=== PATIENT | male | born 1980 | race Caucasian/White ===

== ENCOUNTER 2018-05-03 16:01 | Emergency (ER) | payer OTHER ==
[~2018-05-03] VITALS: Ht 167.6 cm; Wt 131.5 kg
[2018-05-03 16:36] LABS: Source, Urine Clean Catch
[2018-05-03 16:44] LABS: BASOPHILS ABSOLUTE AUTO 0.04 K/mm3 (0.00-0.23); BASOPHILS PERCENT AUTO 1 % (0-2); EOSINOPHILS ABSOLUTE AUTO 0.48 K/mm3 (0.00-0.68); EOSINOPHILS PERCENT AUTO 6 % (0-6); Hemoglobin 13.9 g/dL (13.5-17.5); IMMATURE GRAN ABSOLUTE AUTO 0.01 K/mm3 (0.00-0.10); IMMATURE GRAN PERCENT AUTO 0 % (0-1); LYMPHOCYTES ABSOLUTE AUTO 2.21 K/mm3 (0.84-5.20); LYMPHOCYTES PERCENT AUTO 29 % (21-46); MONOCYTES ABSOLUTE AUTO 0.62 K/mm3 (0.16-1.47); MONOCYTES PERCENT AUTO 8 % (4-13); Mean Corpuscular HGB 29.4 pg (26.0-34.0); Mean Corpuscular HGB Conc 32.3 g/dL (31.5-36.5); Mean Corpuscular Volume 91 fL (80-100); Mean Platelet Volume 9.3 fL (9.1-12.4); NEUTROPHILS ABSOLUTE AUTO 4.19 K/mm3 (1.96-9.15); NEUTROPHILS PERCENT AUTO 56 % (41-73); Platelet Count 301 K/mm3 (150-400); RDW Coefficient Variation 14.1 % (11.7-14.2); RDW Standard Deviation 47.7 fL (35.1-46.3); Red Blood Cell Count 4.73 M/mm3 (4.30-5.90); White Blood Cell Count 7.55 K/mm3 (4.00-11.30)
[2018-05-03 16:46] LABS: Appearance, Urine Clear (Clear); Bilirubin, Urine Neg (Neg); Blood, Urine Neg (Neg); Color, Urine Yellow (P-Yellow); Glucose Qualitative, Urine Neg (Neg); Ketones, Urine Neg (Neg); Leukocyte Esterase, Urine Neg (Neg); Nitrite, Urine Neg (Neg); Protein, Urine 1+ (Neg); Urobilinogen, Urine NORM (Normal)
[2018-05-03 17:13] LABS: Alanine Aminotransfer (ALT/SGP 73 U/L (12-78); Albumin, Blood 3.2 g/dL (3.4-5.0); Albumin/Globulin Ratio 0.7 (0.8-1.8); Alk Phos 110 U/L (50-136); Anion Gap 5 mmol/L (6-16); Aspartate Aminotrans (AST/SGOT 37 U/L (12-37); Bilirubin, Total 0.5 mg/dL (0.1-1.0); Blood Urea Nitrogen 40 mg/dL (8-24); Bun/Creatinine Ratio 42.5 (12.0-20.0); CO2, Blood 24 mmol/L (21-32); Calcium, Blood 8.1 mg/dL (8.5-10.1); Chloride, Blood 111 mmol/L (98-108); Creatinine, Blood 0.94 mg/dL (0.60-1.20); Globulin, Blood 4.6 g/dL (2.2-4.0); Glomerular Filtration Rate >60 (60-); Glucose, Blood 82 mg/dL (70-99); Potassium, Blood 4.1 mmol/L (3.5-5.5); Sodium, Blood 140 mmol/L (136-145); Total Protein, Blood 7.8 g/dL (6.4-8.2)
[2018-05-03] MEDS ORDERED: Norco 5-325 Ta1 EACH PO (17:48)
== END 2018-05-03 18:12 | disposition home or self-care (01) ==
LOC: ER 16:01
PROVIDERS: Physician Assistant
DX: K40.90 Unilateral inguinal hernia, without obstruction or gangrene, not specified as recurrent (principal); I10 Essential (primary) hypertension; F17.200 Nicotine dependence, unspecified, uncomplicated
CPT/HCPCS: 72192; 80053; 85025; 96374; 96375; 99284-25; J2405; J3010

== ENCOUNTER 2018-06-23 12:14 | Day surgery (SDC) | payer OTHER ==
[~2018-06-23] VITALS: Ht 177.8 cm; Wt 133.1 kg
[~2018-06-23 12:14] MED LIST: Advil200 M1 PO; LISI20 PO; Norco 5-325 Ta1 EACH PO
--- NOTE | 2018-06-23 12:53 | NUR ---
[facility] ADMISSION STARTED.Ambulatory in Day Surgery Patient States Post-Procedure ride home has been arranged. Lungs clear T/O to Auscultation.
[2018-06-23] MEDS ORDERED: BUPR150ER PO (13:19)
--- NOTE | 2018-06-23 19:41 | NUR ---
PT DISCHARGED HOME. PARENTS AND PT VERBALIZE UNDERSTANDING OF D/C INSTRUCTIONS. AFEBRILE/VSS. NO ACUTE CHANGES AT TIMES OF D/C HOME.
== END 2018-06-24 22:38 | disposition home or self-care (01) ==
LOC: ORSCMMR 12:14 → ORD 14:00 → ORSCMMR 06-24 22:38
PROVIDERS: Surgery
PROC: 0YU54JZ Supplement Right Inguinal Region with Synthetic Substitute, Percutaneous Endoscopic Approach (ICD-10-PCS; principal; 2018-06-23 14:00)
PROC: 8E0W4CZ Robotic Assisted Procedure of Trunk Region, Percutaneous Endoscopic Approach (ICD-10-PCS; principal; 2018-06-23 14:00)
DX: K40.30 Unilateral inguinal hernia, with obstruction, without gangrene, not specified as recurrent (principal); I10 Essential (primary) hypertension; Z87.891 Personal history of nicotine dependence; Z79.899 Other long term (current) drug therapy; E66.01 Morbid (severe) obesity due to excess calories
CPT/HCPCS: 49650; S2900; A9270-GY; C1781; J0690; J1100; J2250; J2405; J2704; J3010; J7120

== ENCOUNTER 2021-02-25 05:50 | Day surgery (SDC) | payer OTHER ==
[~2021-02-25] VITALS: Ht 177.8 cm; Wt 148.9 kg
[~2021-02-25 05:50] MED LIST changes: +BUPR150ER PO; +Chlorothiazide250 MG PO
[2021-02-25] MEDS ORDERED: BUSPIRONE HCL5 M6 PO (06:14)
--- NOTE | 2021-02-25 06:35 | NUR ---
PT AMBULATES TO [facility]. History, Chart, Medications and Allergies reviewed before start of procedure. Lungs clear T/O to Auscultation. Patient confirms NPO status and agrees with scheduled surgery. Patient reports completing Chlorhexadine shower X2 prior to admission to hospital. GLASSES TO PACU. Patient States Post-Procedure ride home has been arranged.
--- NOTE | 2021-02-25 09:35 | NUR ---
2X2 GAUZE DRSG TAPED TO UMBILICUS, CLEAN, DRY AND INTACT. NO NOTED DRAINAGE, ERYTHEMA OR BRUISING AROUND DRSG. ABDOMINAL BINDER INTACT. PATIENT DENIES NAUSEA. TOLERATING SIPS OF WATER. C/O SHARP 5-6/10 PAIN TO SURGERY SITE. STATES HE IS TOLERATING IT, BUT WOULD LIKE AN ORAL PAIN PILL BEFORE DISCHARGE. WILL GIVE ORAL ANALGESIC AFTER PATIENT HAS MORE PO INPUT.
--- NOTE | 2021-02-25 09:44 | NUR ---
UP TO DRESS INDEPENDANTLY.
--- NOTE | 2021-02-25 10:03 | NUR ---
Discharge instructions reviewed with patient. Patient verbalizes understanding. Copy given to patient to take home. Patient has rided home arranged. Mother at bedside. Mother to fill prescription for patient. Patient denies nausea and states pain has stayed a 6/10 to surgery site. No other c/o verbalized. Patient states he would like to go home.
== END 2021-02-25 10:04 | disposition home or self-care (01) ==
LOC: ORSCMMR 05:50 → ORD 07:30 → ORSCMMR 07:30
PROVIDERS: Surgery
PROC: 0WUF0JZ Supplement Abdominal Wall with Synthetic Substitute, Open Approach (ICD-10-PCS; principal; 2021-02-25 07:30)
DX: K43.0 Incisional hernia with obstruction, without gangrene (principal); I10 Essential (primary) hypertension; Z87.891 Personal history of nicotine dependence; Z79.899 Other long term (current) drug therapy; E66.01 Morbid (severe) obesity due to excess calories; Z68.42 Body mass index [BMI] 45.0-49.9, adult
CPT/HCPCS: A9270; C1781; J0690; J1100; J2250; J2370; J2405; J2704; J3010; J7120

== ENCOUNTER 2022-09-10 03:12 | Day surgery (SDC) | payer OTHER ==
[~2022-09-10 03:12] MED LIST changes: +BUSPIRONE HCL5 M6 PO
== END 2022-09-10 22:43 | disposition home or self-care (01) ==
LOC: WOUND 03:12
DX: S21.301A Unspecified open wound of right front wall of thorax with penetration into thoracic cavity, initial encounter (principal); S41.101A Unspecified open wound of right upper arm, initial encounter; T14.8XXA Other injury of unspecified body region, initial encounter; X95.9XXA Assault by unspecified firearm discharge, initial encounter; I10 Essential (primary) hypertension; E66.9 Obesity, unspecified; Z68.43 Body mass index [BMI] 50.0-59.9, adult
CPT/HCPCS: G0463

== ENCOUNTER 2022-09-17 01:16 | Day surgery (SDC) | payer OTHER | END 2022-09-17 22:52 | disposition home or self-care (01) | LOC: WOUND 01:16 | DX: S21.301A Unspecified open wound of right front wall of thorax with penetration into thoracic cavity, initial encounter (principal); S41.101A Unspecified open wound of right upper arm, initial encounter; T14.8XXA Other injury of unspecified body region, initial encounter; E66.9 Obesity, unspecified; I10 Essential (primary) hypertension; Z68.43 Body mass index [BMI] 50.0-59.9, adult | CPT/HCPCS: G0463 ==

== ENCOUNTER 2022-09-24 00:42 | Day surgery (SDC) | payer OTHER | END 2022-09-24 22:37 | disposition home or self-care (01) | LOC: WOUND 00:42 | DX: S21.301A Unspecified open wound of right front wall of thorax with penetration into thoracic cavity, initial encounter (principal); S41.101A Unspecified open wound of right upper arm, initial encounter; T14.8XXA Other injury of unspecified body region, initial encounter; E66.9 Obesity, unspecified; I10 Essential (primary) hypertension; Z68.43 Body mass index [BMI] 50.0-59.9, adult | CPT/HCPCS: G0463 ==

== ENCOUNTER 2022-10-15 00:53 | Day surgery (SDC) | payer OTHER | END 2022-10-15 22:35 | disposition home or self-care (01) | LOC: WOUND 00:53 | DX: S21.301A Unspecified open wound of right front wall of thorax with penetration into thoracic cavity, initial encounter (principal); S41.101A Unspecified open wound of right upper arm, initial encounter; T14.8XXA Other injury of unspecified body region, initial encounter; E66.9 Obesity, unspecified; I10 Essential (primary) hypertension; Z68.43 Body mass index [BMI] 50.0-59.9, adult | CPT/HCPCS: G0463 ==

== ENCOUNTER 2022-10-22 01:40 | Day surgery (SDC) | payer OTHER | END 2022-10-22 22:45 | disposition home or self-care (01) | LOC: WOUND 01:40 | DX: S21.301A Unspecified open wound of right front wall of thorax with penetration into thoracic cavity, initial encounter (principal); S41.101A Unspecified open wound of right upper arm, initial encounter; X95.9XXA Assault by unspecified firearm discharge, initial encounter; T14.8XXA Other injury of unspecified body region, initial encounter; E66.9 Obesity, unspecified; I10 Essential (primary) hypertension | CPT/HCPCS: G0463 ==

== ENCOUNTER 2023-02-10 12:12 | Observation (INO) | payer OTHER ==
[~2023-02-10] VITALS: Ht 177.8 cm; Wt 162.7 kg
[2023-02-10] MEDS ORDERED: AMLODIPINE BESYL5 MG PO (12:28)
[2023-02-10] MEDS ORDERED: CHLO25B PO (12:28)
[2023-02-10] MEDS ORDERED: LISI20 PO (12:29)
[2023-02-10] MEDS ORDERED: NEURONTIN300 MG PO (12:30)
[2023-02-10] MEDS ORDERED: HYDROCODONE-AC1 EA19 PO (12:30)
[2023-02-10] MEDS ORDERED: OZEMPIC1 MG/0.72 SQ (12:32)
[2023-02-10 13:28] LABS: Albumin, Blood 2.9 g/dL (3.4-5.0); Albumin/Globulin Ratio 0.6 (0.8-1.8); Bilirubin, Total 0.4 mg/dL (0.1-1.0); Bun/Creatinine Ratio 31.2 (12.0-20.0); Creatinine, Blood 1.09 mg/dL (0.60-1.20); Globulin, Blood 4.8 g/dL (2.2-4.0); Potassium, Blood 4.1 mmol/L (3.5-5.5); Total Protein, Blood 7.7 g/dL (6.4-8.2)
[2023-02-10 14:19] LABS: BASOPHILS ABSOLUTE AUTO 0.03 K/mm3 (0.00-0.23); BASOPHILS PERCENT AUTO 0 % (0-2); EOSINOPHILS ABSOLUTE AUTO 0.11 K/mm3 (0.00-0.68); EOSINOPHILS PERCENT AUTO 1 % (0-6); Hemoglobin 12.1 g/dL (13.5-17.5); IMMATURE GRAN ABSOLUTE AUTO 0.05 K/mm3 (0.00-0.10); IMMATURE GRAN PERCENT AUTO 0 % (0-1); LYMPHOCYTES ABSOLUTE AUTO 1.64 K/mm3 (0.84-5.20); LYMPHOCYTES PERCENT AUTO 13 % (21-46); MONOCYTES ABSOLUTE AUTO 0.86 K/mm3 (0.16-1.47); MONOCYTES PERCENT AUTO 7 % (4-13); Mean Corpuscular HGB 29.3 pg (26.0-34.0); Mean Corpuscular HGB Conc 33.6 g/dL (31.5-36.5); Mean Corpuscular Volume 87 fL (80-100); Mean Platelet Volume 9.3 fL (9.1-12.4); NEUTROPHILS PERCENT AUTO 79 % (41-73); Platelet Count 266 K/mm3 (150-400); RDW Coefficient Variation 13.2 % (11.7-14.2); RDW Standard Deviation 41.7 fL (35.1-46.3); Red Blood Cell Count 4.13 M/mm3 (4.30-5.90); White Blood Cell Count 12.49 K/mm3 (4.00-11.30)
[2023-02-10 15:10] LABS: Anti-Xa UFH, PHA Monitoring <0.10 IU/mL; Prothrombin Time Results 10.5 Sec (9.7-11.5)
[2023-02-10 17:49] VITALS: BP 147/97
[2023-02-10 19:45] VITALS: BP 157/95
[2023-02-11 00:08] VITALS: BP 144/97
[2023-02-11 04:09] VITALS: BP 136/86
[2023-02-11 06:28] LABS: BASOPHILS ABSOLUTE AUTO 0.02 K/mm3 (0.00-0.23); BASOPHILS PERCENT AUTO 0 % (0-2); EOSINOPHILS PERCENT AUTO 1 % (0-6); Hematocrit 34.5 % (37.0-53.0); Hemoglobin 11.8 g/dL (13.5-17.5); IMMATURE GRAN ABSOLUTE AUTO 0.03 K/mm3 (0.00-0.10); IMMATURE GRAN PERCENT AUTO 0 % (0-1); LYMPHOCYTES ABSOLUTE AUTO 1.46 K/mm3 (0.84-5.20); LYMPHOCYTES PERCENT AUTO 20 % (21-46); MONOCYTES ABSOLUTE AUTO 0.52 K/mm3 (0.16-1.47); MONOCYTES PERCENT AUTO 7 % (4-13); Mean Corpuscular HGB Conc 34.2 g/dL (31.5-36.5); Mean Corpuscular Volume 85 fL (80-100); Mean Platelet Volume 9.3 fL (9.1-12.4); NEUTROPHILS ABSOLUTE AUTO 5.15 K/mm3 (1.96-9.15); NEUTROPHILS PERCENT AUTO 71 % (41-73); Platelet Count 243 K/mm3 (150-400); RDW Coefficient Variation 13.3 % (11.7-14.2); RDW Standard Deviation 41.2 fL (35.1-46.3); Red Blood Cell Count 4.07 M/mm3 (4.30-5.90); White Blood Cell Count 7.28 K/mm3 (4.00-11.30)
[2023-02-11 06:44] LABS: Magnesium, Blood 1.7 mg/dL (1.6-2.4)
[2023-02-11 06:45] LABS: Albumin, Blood 2.6 g/dL (3.4-5.0); Albumin/Globulin Ratio 0.6 (0.8-1.8); Bilirubin, Total 0.4 mg/dL (0.1-1.0); Calcium, Blood 8.8 mg/dL (8.5-10.1); Creatinine, Blood 0.87 mg/dL (0.60-1.20); Globulin, Blood 4.4 g/dL (2.2-4.0); Phosphorus, Blood 3.7 mg/dL (2.5-4.9); Potassium, Blood 4.4 mmol/L (3.5-5.5)
[2023-02-11 09:11] VITALS: BP 136/82
[2023-02-11] MEDS ORDERED: XARELTO20 MG PO (11:31)
[2023-02-11 12:04] VITALS: BP 143/84
--- NOTE | 2023-02-11 12:37 | NUR ---
SHIFT SUMMARY/DC NOTE PT ALERT AND ORIENTED X4, COOPERATIVE WITH CARE AND ABLE TO MAKE NEEDS KNOWN. ALEXANDRE. PT MAINTAINED 02 SATURATION ABOVE 92% ON RA, PT NOTED SOME SOB WITH EXERTION. HR 90'S-110'S, HE DENIED CHEST PAIN/PRESSURE/DIZZINESS. PT USED URINAL INDEPENDENTLY. NO BOWEL MOVEMENT DURING SHIFT. NO SWELLING/REDNESS/PAIN OF PT'S CALVES. PT HAD SEVERAL FAMILY MEMBERS IN ROOM WITH HIM BEFORE HE WAS DISCHARGED. DISCHARGE INSTRUCTIONS THOROUGHOULY GONE OVER WITH PT, ALL OF PT'S AND PT'S FAMILY MEMBERS QUESTIONS WERE ANSWERED BY THIS RN AND DR. FERNANDEZ. PT LEFT WITH DC PACKET AND ALL OF HIS BELONGINGS. HE WAS WHEELED OUT VIA WHEELCHAIR BY CIVIL ENGINEER IN TRAINING. PT STABLE AT TIME OF TRANSFER.
== END 2023-02-11 12:30 | disposition home or self-care (01) ==
LOC: ER 12:12 → PCU 12:13
PROVIDERS: Emergency Medicine; Physician Assistant; ADMIT Family Medicine
DX: I26.99 Other pulmonary embolism without acute cor pulmonale (principal); I10 Essential (primary) hypertension; E66.9 Obesity, unspecified; I82.402 Acute embolism and thrombosis of unspecified deep veins of left lower extremity; Z79.899 Other long term (current) drug therapy; G62.9 Polyneuropathy, unspecified; S27.391 Other injuries of lung, unilateral
CPT/HCPCS: 36415; 71046; 71260; 80053; 83735; 83880; 84100; 84484; 85025; 85520; 85610; 85730; 93005; 93010; 93971; 96374; 96375; 99285-25; A9270; J1644; J2405; Q9967

== ENCOUNTER 2023-11-22 08:45 | Day surgery (SDC) | payer OTHER ==
[~2023-11-22] VITALS: Ht 172.7 cm; Wt 167.4 kg
[2023-11-22] VITALS (24 sets, daily range): BP systolic 138–171; BP diastolic 74–97
[~2023-11-22 08:45] MED LIST changes: +AMLODIPINE BESYL5 MG PO; +CHLO25B PO; +HYDROCODONE-AC1 EA19 PO; +NEURONTIN300 MG PO; +OZEMPIC1 MG/0.72 SQ; +XARELTO20 MG PO; +ZESTRIL40 M2 PO
[2023-11-22] MEDS ORDERED: Lactated Ringer's 1,000 ML IV SCH (09:15)
[2023-11-22] MEDS ORDERED: TRAZ150T57 PO (09:26)
[2023-11-22] MEDS ORDERED: MOBIC15 MG PO (09:26)
--- NOTE | 2023-11-22 09:48 | NUR ---
Ambulatory in Day Surgery History, Chart, Medications and Allergies reviewed before start of procedure. Pre-Op teaching done. Pt verbalizes understanding. Patient States Post-Procedure ride home has been arranged.
[2023-11-22] MEDS ORDERED: CeFAZolin Sodium 3,000 MG in NS 100 ML IV SCH (10:10)
[2023-11-22] MEDS ORDERED: Indocyanine Green 25 MG Vial IV SCH (10:10)
[2023-11-22] MEDS ORDERED: CEFAZOLIN SODIUM IV SCH (10:10)
[2023-11-22] MEDS ORDERED: NS IV SCH (10:10)
[2023-11-22] MEDS ORDERED: Bupivacaine 0.5% HCl 5 MG/ML 30MLVIAL ONE (10:14)
[2023-11-22] MEDS ORDERED: propofoL 20 ML IV ONE (10:29)
[2023-11-22] MEDS ORDERED: FentaNYL Citrate 50 MCG/ML 2 ML Injection ONE ×4 (10:29→13:55)
[2023-11-22] MEDS ORDERED: Dexamethasone Sod Phos 10 MG/ML 1ML VIAL ONE (10:50)
[2023-11-22] MEDS ORDERED: Rocuronium Bromide 10 MG/ML 5ML Injection IV ONE (11:27)
[2023-11-22] MEDS ORDERED: Sugammadex Sodium 200 MG/2ML SDV (100 MG/ML) ONE (12:07)
[2023-11-22] MEDS ORDERED: Ondansetron HCl 2 MG / ML 2ML Vial ONE (12:07)
[2023-11-22] MEDS ORDERED: HYDROmorphone HCl/Pf 1MG SYR IV PRN (14:10)
[2023-11-22] MEDS ORDERED: FLU VACC TS2024-25(6MOS UP)/PF 45 MCG/0.5 ML SYRINGE IM SCH (14:10)
[2023-11-22] MEDS ORDERED: HYDROcodone 10-APAP 325 TAB PO PRN (14:10)
[2023-11-22] MEDS ORDERED: Ketorolac Tromethamine 30mg Vial ONE (14:11)
[2023-11-22] MEDS ORDERED: Acetaminophen 325 MG TABLET PO PRN (14:15)
[2023-11-22] MEDS ORDERED: Ondansetron HCl 2 MG / ML 2ML Vial IV PRN (14:15)
[2023-11-22] MEDS ORDERED: HYDROmorphone HCl/Pf 1MG SYR ONE (14:21)
--- NOTE | 2023-11-22 14:28 | NUR ---
GLASSES GIVEN BACK TO PT
[2023-11-22] MEDS ORDERED: Ketorolac Tromethamine 15mg Vial IV PRN (14:30)
--- NOTE | 2023-11-22 14:36 | NUR ---
ROOM 226 RN CALLED FOR REPORT. RN UNAVAILABLE AT THIS TIME AND WILL CALL BACK WHEN ABLE
--- NOTE | 2023-11-22 15:02 | NUR ---
pt arrived to unit from pacu transferred with minimal assistance from rney to bed. oriented to use of call light. lap incisioins to abd with tiss adhesive cdi. pt denies nausea and sob. requesting pain pill for 6/10 abdominal pain. call light in reach. family bedside.
--- NOTE | 2023-11-22 17:32 | NUR ---
SUMMARY PT WISHES TO DC HOME THIS EVENING. POD 0 LAP ETIENNE. LAP INCISIONS TO ABD W/TISS ADHESIVE CDI. PT TOLERATING PO. VOIDED. ICE PACK TO ABD FOR COMFORT. FAMILY PICKED UP PT'S PAIN PRESCRIPTION.
--- NOTE | 2023-11-22 18:11 | NUR ---
DISCHARGED PT STABLE ON RA SINCE ARRIVING TO FLOOR. DISCUSSED WITH DR BREWSTER AND DC ORDERS OBTAINED. PT TOLERATING PO AND VOIDED. PT EAGER TO DISCHARGE HOME. DC'D IV, CATHETER INTACT. REVIEWED DC INSTRUCTIONS WITH PT; VERBALIZED UNDERSTANDING. PT GOT DRESSED AND LEFT UNIT IN WC W/POSSESSIONS AND DC PAPERWORK IN HAND, ACCOMPANIED BY FAMILY TO CAR OUTSIDE.
[2023-11-22] MEDS ORDERED: TraZODone HCl 100 MG Tab PO SCH (21:00)
[2023-11-23] MEDS ORDERED: Lisinopril 20 MG Tab PO SCH (09:00)
[2023-11-23] MEDS ORDERED: Enoxaparin 40 MG/0.4 ML SYR SC SCH (09:00)
[2023-11-23] MEDS ORDERED: AmLODIPine Besylate 5 MG Tab PO SCH (09:00)
[2023-11-23] MEDS ORDERED: HydroCHLOROthiazide 25 mg Tab PO SCH (09:00)
== END 2023-11-22 18:09 | disposition home or self-care (01) ==
LOC: ORSCMMR 08:45 → ORD 08:45 → ORSCMMR 08:46 → ORD 10:30 → SURS 14:47 → ORD 18:09
PROVIDERS: Surgery
PROC: 0FT44ZZ Resection of Gallbladder, Percutaneous Endoscopic Approach (ICD-10-PCS; principal; 2023-11-22 10:30)
PROC: 8E0W4CZ Robotic Assisted Procedure of Trunk Region, Percutaneous Endoscopic Approach (ICD-10-PCS; principal; 2023-11-22 10:30)
DX: K80.12 Calculus of gallbladder with acute and chronic cholecystitis without obstruction (principal); I10 Essential (primary) hypertension; Z87.891 Personal history of nicotine dependence; E11.9 Type 2 diabetes mellitus without complications; Z79.899 Other long term (current) drug therapy; E66.01 Morbid (severe) obesity due to excess calories; Z68.43 Body mass index [BMI] 50.0-59.9, adult; K66.0 Peritoneal adhesions (postprocedural) (postinfection); Z86.711 Personal history of pulmonary embolism; Z79.01 Long term (current) use of anticoagulants; K76.0 Fatty (change of) liver, not elsewhere classified
CPT/HCPCS: 88304; A9270; J0690; J1100; J1170; J1171; J1885; J2405; J2704; J3010; J7120